=== PATIENT | male | born 1945 | race Caucasian/White ===

== ENCOUNTER → 2018-07-08 | Outpatient (CLI) | payer OTHER ==
[~2018-07-08] MED LIST: ALLOPURINOL 10100 M1 PO; ASPIRIN EC81 M1 PO; B12 PO; BUPROPION PO; CARDURA XL4 MG PO; CARVEDILOL25 MG PO; COLCRYS 0.6 MG0.6 MG PO; COUMADIN 5 MG TA5 M1 PO; FLEXERIL PO; FOLIC ACID PO; FUROSEMIDE 40 M40 MG PO; IMDUR120 MG PO; JALYN 0.5-0.41 EACH PO; LIPITOR80 MG PO; LISINOPRIL20 MG PO; MEGA MULTI FOR1 EAC1 PO; NIASPAN 500 MG500 M1 PO; NIASPAN ER 101000 M1 PO; NITROQUICK0.4 MG SL; OMEPRAZOLE20 MG PO; PACERONE 200 M200 M1 PO; POTASSIUM20 PO; PREDNISONE 20 M20 M1 PO; PRILOSEC40 MG PO; PROSCAR 5MG TABL5 M1 PO; SLOW-MAG64 MG PO; WELLBUTRIN 100100 MG NG
== END ==
LOC: RAD 09:54
DX: M16.0 Bilateral primary osteoarthritis of hip (principal); I48.91 Unspecified atrial fibrillation; I25.5 Ischemic cardiomyopathy

== ENCOUNTER → 2018-09-02 | Outpatient (CLI) | payer OTHER | LOC: CAT 07:37 | DX: R31.0 Gross hematuria (principal); I25.10 Atherosclerotic heart disease of native coronary artery without angina pectoris; I70.0 Atherosclerosis of aorta; Z95.0 Presence of cardiac pacemaker; Z87.442 Personal history of urinary calculi ==